=== PATIENT | male | born 1940 | race Caucasian/White ===

== ENCOUNTER 2018-06-11 14:47 | Emergency (ER) | payer MEDICARE, OTHER ==
[2018-06-11 15:19] VITALS: BP 149/79
[2018-06-11] MEDS ORDERED: Tetan/Diph/Pertus SYR(Tdap)* 0.5 ML SYR(BOOSTRIX) use SYR IM ONE (15:47)
[2018-06-11] MEDS ORDERED: Mupirocin 2% OINT* TUBE TOPICAL ONE (15:47)
--- NOTE | 2018-06-11 15:52 | UC ---
Skin Complaint HPI - HPI Summary HPI Summary: 77-year-old male comes in with a chief complaint of a left lower leg wound. Several days ago he had a piece of wood fall on his chacon. He got an abrasion. It was healing up tenderness started getting worse. His been putting triple antibiotic ointment on it. Recently it started to become red around the area the redness is spreading. No fevers or chills feels well otherwise. - History of Current Complaint Chief Complaint: UCSkin Time Seen by Provider: 06/11/18 15:37 Stated Complaint: SKIN CONCERN Pain Intensity: 5 - Allergy/Home Medications Allergies/Adverse Reactions: Allergies Allergy/AdvReac Type Severity Reaction Status Date / Time Penicillins Allergy Hallucinati Verified 06/11/18 15:20 ons Home Medications: Home Medications Aspirin 81 mg CHEW TAB* [Aspirin Low Dose TAB*] 81 mg PO DAILY 06/11/18 [ History Confirmed 06/11/18] Atorvastatin* [Lipitor*] 20 mg PO 2100 06/11/18 [History Confirmed 06/11/18] Cholecalciferol (Vitamin D3) [D 1000] 3,000 unit PO DAILY 06/11/18 [History Confirmed 06/11/18] Clopidogrel TAB* [Plavix TAB*] 75 mg PO DAILY 06/11/18 [History Confirmed ] Enalapril TAB* [Vasotec TAB*] 2.5 mg PO BID 06/11/18 [History Confirmed 06/11/18 ] Metoprolol Succinate XL TAB* [Toprol XL TAB*] 25 mg PO DAILY 06/11/18 [History Confirmed 06/11/18] Vitamin B Complex CAP* [B Complex CAP*] 1 cap PO DAILY 06/11/18 [History Confirmed 06/11/18] PMH/Surg Hx/FS Hx/Imm Hx Previously Healthy: Yes Endocrine History: Dyslipidemia Cardiovascular History: Hypertension - Surgical History Surgical History: Yes Surgery Procedure, Year, and Place: 2 cardiac caths - Family History Known Family History: Positive: Non-Contributory - Social History Alcohol Use: None Substance Use Type: None Smoking Status (MU): Never Smoked Tobacco Review of Systems All Other Systems Reviewed And Are Negative: Yes Constitutional: Positive: Negative Skin: Positive: Other - SEE HPI Eyes: Positive: Negative ENT: Positive: Negative Respiratory: Positive: Negative Cardiovascular: Positive: Negative Gastrointestinal: Positive: Negative Motor: Positive: Negative Neurovascular: Positive: Negative Musculoskeletal: Positive: Negative Neurological: Positive: Negative Psychological: Positive: Negative Is Patient Immunocompromised?: No Physical Exam Triage Information Reviewed: Yes Appearance: Well-Appearing, No Pain Distress, Well-Nourished Vital Signs: Initial Vital Signs Temp 97.1 F 06/11/18 15:14 Pulse 70 06/11/18 15:14 Resp 16 06/11/18 15:14 BP 149/79 06/11/18 15:14 Pulse Ox 100 06/11/18 15:14 Vital Signs Reviewed: Yes Eye Exam: Normal Eyes: Positive: Conjunctiva Clear Neck: Positive: Supple Respiratory: Positive: No respiratory distress Musculoskeletal: Positive: Strength Intact, ROM Intact Neurological Exam: Normal Neurological: Positive: Alert, Muscle Tone Normal Psychological Exam: Normal Psychological: Positive: Age Appropriate Behavior Skin: Positive: Other - On the left lower chacon there is a 2 cm x 1 cm abrasion with a scab on it. No active drainage. There is surrounding erythema. No streaking. There is an area of ecchymotic rash on the left side of the calf in a patchy distribution about 6 cm x 4 cm. Calf is nontender. Course/Dx - Course Course Of Treatment: The wound was cleaned by nursing and clinic and mupirocin and a dressing was applied. Patient given his T tap here. The started on doxycycline by mouth and to continue with mupirocin and follow-up his primary care doctor. I discussed that if he got worse he needs to go to the emergency room. - Diagnoses Provider Diagnosis: Abrasion of left lower leg, Cellulitis of left lower leg Discharge - Sign-Out/Discharge Documenting (check all that apply): Patient Departure All imaging exams completed and their final reports reviewed: No Studies - Discharge Plan Condition: Stable Disposition: HOME Prescriptions: DOXYcycline CAP(*) [DOXYcycline 100MG CAP(*)] 100 mg PO BID #20 cap Mupirocin 1 applic TOPICAL BID #22 gm Patient Education Materials: Cellulitis (ED), Abrasion (ED) Referrals: Andreina Hilliard MD [Medical Doctor] - Additional Instructions: FOLLOW UP WITH YOUR DOCTOR. YOU WERE GIVEN A TDAP (TETANUS/DIPTHERIA IMMUNIZATION) TODAY IN CLINIC. GO TO THE EMERGENCY DEPARTMENT FOR ANY WORSENING OF YOUR CONDITION; SPREAD OF INFECTION, YOU FEEL ILL, FEVER OR ANY QUESTIONS OR CONCERNS. - Billing Disposition and Condition Condition: STABLE Disposition: Home
== END 2018-06-11 16:21 | disposition home or self-care (01) ==
LOC: UCCORT 14:47
DX: S80.812A Abrasion, left lower leg, initial encounter (principal); L03.116 Cellulitis of left lower limb; I10 Essential (primary) hypertension; Z79.899 Other long term (current) drug therapy; Z79.82 Long term (current) use of aspirin; Z88.0 Allergy status to penicillin; W20.8XXA Other cause of strike by thrown, projected or falling object, initial encounter; Y92.9 Unspecified place or not applicable
CPT/HCPCS: 90471; 90715; 99203; G0463